=== PATIENT | female | born 1950 | race Caucasian/White ===

== ENCOUNTER → 2016-10-28 | Outpatient (CLI) | payer MEDICARE, BC, OTHER ==
--- NOTE | 2016-11-01 08:08 | MM ---
Reason for exam: screening (asymptomatic). Last mammogram was performed 1 year and 11 months ago. History: Patient is postmenopausal. Family history of breast cancer in mother. Took hormonal contraceptives for 3 years. Took progesterone for 4 years 10 months. Physical Findings: A clinical breast exam by your physician is recommended on an annual basis and results should be correlated with mammographic findings. MG 3D Screening Mammo W/Cad Bilateral CC and MLO view(s) were taken. Prior study comparison: November 14, 2014, bilateral MG screening mammo w CAD. February 24, 2012, bilateral digital screening mammo w/CAD. November 15, 2010, bilateral digital screening mammo w/CAD. There are scattered fibroglandular densities. No significant changes when compared with prior studies. ASSESSMENT: Negative, BI-RAD 1 RECOMMENDATION: Routine screening mammogram of both breasts in 1 year.
== END | disposition home or self-care (01) ==
LOC: RADMAMWWP 14:43
PROVIDERS: ATTEND Family Medicine
DX: Z12.31 Encounter for screening mammogram for malignant neoplasm of breast (principal)
CPT/HCPCS: 77063; G0202

== ENCOUNTER → 2016-12-15 | Outpatient (CLI) | payer MEDICARE, BC, OTHER ==
--- NOTE | 2016-12-15 13:26 | XR ---
EXAMINATION TYPE: XR lumbar spine with bend/flex DATE OF EXAM: 12/15/2016 1:17 PM CLINICAL HISTORY: Chronic worsening back pain. History of prior surgery 2004. Spondylolisthesis with radiculopathy and disc degeneration per order TECHNIQUE: Frontal, lateral, dynamic flexion and extension lateral, and oblique images of the lumbar spine are obtained. COMPARISON: CT chest and abdomen June 20, 2016. FINDINGS: There are 5 lumbar type vertebral bodies redemonstrated. The lumbar spine shows satisfacto ry alignment without evidence of acute fracture or dislocation. Posterior fusion hardware L4-L5 level bilaterally is redemonstrated. There are bilateral laminectomy defects and spinous process resection at L5 level redemonstrated. There is moderate disc space narrowing L5-S1 level redemonstrated otherw ise vertebral body heights and disk space heights are within normal limits with exception of T12-L1 l evel show moderate disc space narrowing and spurring most pronounced anteriorly. Dynamic images bryce w no suspicious subluxation at any lumbar level. No increased disc space narrowing is seen. The obliq ue images appear within normal limits. Cholecystectomy clips are seen overlying soft tissue IMPRESSION: Postsurgical changes lower lumbar spine. Stable degenerative changes at thoracolumbar lum bosacral junction. Other findings as noted above. No significant change in alignment on dynamic image s.
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
--- NOTE | 2016-12-15 15:25 | NM ---
EXAMINATION TYPE: NM bone scan whole body DATE OF EXAM: 12/15/2016 3:14 PM COMPARISON: CT chest and abdomen June 20, 2016. HISTORY: Spondylolisthesis with radiculopathy and other intervertebral disc degeneration lumbar regio n per order. Low back pain for 3 years getting worse recently per patient. Delayed whole-body scanning was performed following the injection of 24.3 mCi Tc 99m MDP. Images acq uired 3 hours post injection. Spot images of the lumbar spine are obtained in multiple projections al alexander with whole body images FINDINGS: There is lucency from prosthesis in bilateral knee joints. Mild surrounding uptake is consistent with heterotopic ossification or degenerative change. No suspicious focal area of abnormal uptake is seen in the area of concern lumbar spine. Single focus of abnormal uptake near level of the left lower rib appears outside the rib likely upper pole level left kidney on additional spot views is of uncertain etiology. IMPRESSION: No suspicious radiotracer uptake in the lumbar spine is identified.
== END | disposition home or self-care (01) ==
LOC: RADNMMAIN 11:22
DX: M47.26 Other spondylosis with radiculopathy, lumbar region (principal); M51.36 Other intervertebral disc degeneration, lumbar region; M47.812 Spondylosis without myelopathy or radiculopathy, cervical region; Z98.890 Other specified postprocedural states
CPT/HCPCS: 72052; 72114; 78306; A9503

== ENCOUNTER → 2017-01-19 | Outpatient (CLI) | payer MEDICARE, BC, OTHER ==
[2017-01-19 16:49] LABS: Basophils % (A) 1 %; CH 32.5; CHCM 32.7; Eosinophils # (A) 0.1 k/uL (0-0.7); Eosinophils % (A) 3 %; HCT 37.4 % (34.0-46.0); HDW 2.57; HGB 12.1 gm/dL (11.4-16.0); Luc # (Auto) 0.06; Luc % (Auto) 2; Lymphocytes # (A) 1.3 k/uL (1.0-4.8); Lymphocytes % (A) 32 %; MCH 32.3 pg (25.0-35.0); MCHC 32.3 g/dL (31.0-37.0); Mean Platelet Volume 7.2; Monocytes # (A) 0.2 k/uL (0-1.0); Monocytes % (A) 5 %; Neutrophils # (A) 2.3 k/uL (1.3-7.7); Neutrophils % (A) 58 %; RBC 3.74 m/uL (3.80-5.40); RDW 13.6 % (11.5-15.5); WBC (Perox) 4.27
[2017-01-19 16:59] LABS: Calcium 9.8 mg/dL (8.4-10.2); Potassium 3.6 mmol/L (3.5-5.1); Total Bilirubin 0.5 mg/dL (0.2-1.3); Total Protein 6.5 g/dL (6.3-8.2)
[2017-01-19 17:01] LABS: Partial Thromboplastin Time 22.6 sec (22.0-30.0); Prothrombin Time 10.2 sec (9.0-12.0)
== END | disposition home or self-care (01) ==
LOC: LABWHC1 16:10
DX: M47.817 Spondylosis without myelopathy or radiculopathy, lumbosacral region (principal); Z51.81 Encounter for therapeutic drug level monitoring; Z79.01 Long term (current) use of anticoagulants
CPT/HCPCS: 36415; 80053; 85025; 85610; 85730

== ENCOUNTER → 2017-02-16 | Outpatient (CLI) | payer MEDICARE, BC, OTHER ==
--- NOTE | 2017-02-17 15:26 | XR ---
EXAMINATION TYPE: XR lumbar spine 2 or 3V DATE OF EXAM: 02/16/2017 5:51 PM COMPARISON: NONE HISTORY: Postsurgical changes lumbar spine TECHNIQUE: 3 view lumbar spine FINDINGS: Pedicle screws are present L5-S1. A laminectomy at L5 is present. Sacroiliac joint degenera tive changes are noted There 5 lumbar-type vertebral bodies. L1-L4 pedicles are intact. L5 pedicles are obscured by pedicle screws Posterior disc space narrowing is present L3-4 L4-5. Degenerative disc changes are at the thoracolumb ar junction. IMPRESSION: 1. Postsurgical changes. No acute changes evident. 2. Degenerative disc changes posteriorly mid lumbar spine
== END | disposition home or self-care (01) ==
LOC: RADXRMAIN 17:18
DX: Z48.89 Encounter for other specified surgical aftercare (principal); M51.35 Other intervertebral disc degeneration, thoracolumbar region; M51.36 Other intervertebral disc degeneration, lumbar region
CPT/HCPCS: 72100